=== PATIENT | male | born 1945 | race Two or more races ===

== ENCOUNTER 2017-12-30 10:41 | Outpatient (CLI) | payer MEDICARE, OTHER ==
[~2017-12-30 10:41] MED LIST: ASPIRIN-LOW81 MG ORAL; ATORVASTATIN CA20 MG ORAL; BACLOFEN10 MG ORAL; COLACE100 MG ORAL; COQ-10100 M1 PO; FERROUS SULFAT325 MG ORAL; FLOMAX0.4 MG ORAL; GABAPENTIN100 MG ORAL; GAVISCON LIQUI355 ML PO; LEVOTHYROXINE88 MCG ORAL; LYCOPENE10 MG PO; MELOXICAM7.5 MG PO; METFORMIN HCL850 M1 ORAL; MIRALAX17 G2 ORAL; NEXIUM40 MG ORAL; OMEPRAZOLE20 M2 ORAL; PANTOPRAZOLE SO40 MG ORAL; PHENERGAN6.25 MG/5 ORAL; PROBIOTIC1 EAC5 PO; PROSCAR5 MG ORAL; PROTONIX40 MG ORAL; VITAMIN B-12500 MCG ORAL; VITAMIN D35000 UNIT ORAL; ZANTAC 7575 MG ORAL; ZANTAC150 MG ORAL; ZITHROMAX TRI-500 MG ORAL; [UNRECOGNIZED DRUG - OTHER] PO
[2017-12-30 11:06] VITALS: BP 104/59
[2017-12-30] MEDS ORDERED: METFORMIN HCL500 M1 ORAL (12:20)
[2017-12-30] MEDS ORDERED: VITAMIN B12-FO1 EAC1 PO (12:20)
--- NOTE | 2017-12-30 15:52 | GI Progress Note ---
Assessment/Plan Problems: (1) Abdominal pain ICD Codes: R10.9 - Abdominal pain SNOMED: 95139734 (2) Pancreatic cyst ICD Codes: K86.2 - Pancreatic cyst SNOMED: 76454603 (3) Constipation ICD Codes: K59.00 - Constipation SNOMED: 87701410 Status: stable Status Narrative Seen with Dr. Horn. Assessment/Plan EGD/colonoscopy scheduled 01/06/18. - CLD & (Nulytely/Suprep/Movi-Prep) prep instructions given and acknowledged by patient. - NPO @ DE day prior procedure explained. CTAP to evaluate pancreatic cyst after procedure. The patient was seen and examined at bedside and all new and available data was reviewed in the patients chart. I agree with the above findings, impression and plan. (Patient seen earlier today. Signature stamp does not reflect patient encounter time.). - Zackary Horn MD Subjective Subjective Odynophagia >> Gaviscon helps. last colonoscopy 2010? Objective Last 24 Hour Vital Signs Date Time Temp Pulse Resp B/P (MAP) Pulse Ox O2 Delivery O2 Flow Rate FiO2 12/30/17 11:06 98.1 69 18 104/59 95 98.1 General Appearance: WD/WN, no apparent distress, alert Cardiovascular: normal rate Respiratory/Chest: normal breath sounds, no respiratory distress Abdominal Exam: normal bowel sounds, non tender, soft Extremities: normal range of motion, non-tender Laverne Luevano COMPONENT ASSEMBLER Dec 30, 2017 15:52
== END 2017-12-30 11:13 | disposition home or self-care (01) ==
LOC: PAN 10:41
DX: R10.9 Unspecified abdominal pain (principal); K86.2 Cyst of pancreas; K59.00 Constipation, unspecified
CPT/HCPCS: 99212

== ENCOUNTER 2018-01-06 10:42 | Day surgery (SDC) | payer MEDICARE, OTHER ==
[~2018-01-06] VITALS: Ht 167.6 cm; Wt 70.8 kg
[2018-01-06] VITALS (9 sets, daily range): BP systolic 128–147; BP diastolic 74–78
[~2018-01-06 10:42] MED LIST changes: +METFORMIN HCL500 M1 ORAL; +VITAMIN B12-FO1 EAC1 PO
[2018-01-06] MEDS ORDERED: SYNTHROID100 MCG ORAL (11:18)
[2018-01-06] MEDS ORDERED: Lidocaine 1% MPF 10mg/ml 5ml ONE (11:30)
[2018-01-06] MEDS ORDERED: Propofol 200mg/20ml IV ONE (11:30)
--- NOTE | 2018-01-06 11:49 | Pre-Procedure Note/Attestation ---
Pre-Procedure Note/Attestation Complete Prior to Procedure Planned Procedure: not applicable Procedure Narrative: esophagogastroduodenoscopy and colonoscopy Indications for Procedure Pre-Operative Diagnosis: screening colonoscopy gerd Attestation I attest that I discussed the nature of the procedure; its benefits; risks and complications; and alternatives (and the risks and benefits of such alternatives ), prior to the procedure, with the patient (or the patient's legal insurance account representative). I attest that, if there was a reasonable possibility of needing a blood transfusion, the patient (or the patient's legal insurance account representative) was given the [facility] standardized written summary, pursuant to the [place] Blood Safety Act ([place] Health and Safety Code # 1645, as amended). I attest that I re-evaluated the patient just prior to the surgery and that there has been no change in the patient's H&P, except as documented below: Zackary Horn MD Jan 06, 2018 11:49
--- NOTE | 2018-01-06 11:50 | Short Stay Surgery H&P ---
History of Present Illness History of Present Illness Chief Complaint see recent office consult note HPI Giovanni Yao is a 72 year old male who was admitted on for Abdominal Pain Patient History Allergies: Coded Allergies: No Known Allergies (Unverified , 12/10/12) Medication History Scheduled Aspirin (Aspirin EC), 81 MG ORAL DAILY, (Reported) Atorvastatin Calcium* (Atorvastatin Calcium*), 20 MG ORAL BEDTIME, (Reported) Cyanocobalamin/Folic Acid (Vitamin K15-Fwkyl Acid Tablet), 1 EACH PO DAILY, ( Reported) Ferrous Sulfate* (Ferrous Sulfate*), 325 MG ORAL DAILY, (Reported) Gabapentin* (Gabapentin*), 100 MG ORAL QHS, (Reported) Levothyroxine Sodium* (Synthroid*), 100 MCG ORAL DAILY, (Reported) Metformin Hcl* (Metformin Hcl*), 500 MG ORAL DAILY, (Reported) Pantoprazole* (Pantoprazole*), 40 MG ORAL DAILY, (Reported) Tamsulosin HCl (Flomax), 0.4 MG ORAL DAILY, (Reported) [Prostatan ], PO DAILY, (Reported) Discontinued Medications Cholecalciferol (Vitamin D3) (Vitamin D3), 5,000 UNIT ORAL 3XW, (Reported) Discontinued Reason: MD discontinued med Cyanocobalamin (Vitamin B-12)* (Vitamin B-12*), 500 MCG ORAL DAILY, (Reported) Discontinued Reason: MD discontinued med Docusate Sodium* (Colace*), 100 MG ORAL TWICE A DAY, (Reported) Discontinued Reason: Pt stopped taking med Levothyroxine Sodium* (Levothyroxine Sodium*), 100 MCG ORAL DAILY, (Reported) Discontinued Reason: Pt stopped taking med Lycopene (Lycopene), 20 MG PO DAILY, (Reported) Discontinued Reason: Pt stopped taking med Meloxicam* (Meloxicam*), 7.5 MG PO DAILY, (Reported) Discontinued Reason: MD discontinued med Metformin Hcl* (Metformin Hcl*), 850 MG ORAL DAILY, (Reported) Discontinued Reason: Medication dose changed Polyethylene Glycol 3350* (Miralax*), 17 GM ORAL DAILY, (Reported) Discontinued Reason: Pt stopped taking med Ubidecarenone (Coq-10), 100 MG PO DAILY, (Reported) Discontinued Reason: Pt stopped taking med Plan Attestation Are the patient's medical conditions optimized for surgery? Zackary Horn MD Jan 06, 2018 11:50
--- NOTE | 2018-01-06 12:28 | Endoscopy Procedure Note ---
Endoscopy Procedure Note General Indication for Procedure: screening colon, GERD Procedures Performed: EGD, colonoscopy Operative Findings/Diagnosis: 5 polyps, gastritis Specimen: yes Pt Tolerated Procedure Well: Yes Estimated Blood Loss: none Anesthesia Anesthesiologist: sanju Anesthesia: MAC Inserted Devices Implant(s) used?: No Quality Quality of Bowel Preparation: Good Did scope reach the cecum?: Yes Was there any complications?: No GI Core Measures 50 yrs or older w/o bx or poly: No 10yrs. F/U not recommended: Yes If not recommended, why?: Above average risk 10 yrs. F/U needed: Yes 18 years or older w/prev. colo: Yes <3yrs. since last colonoscopy: No Zackary Horn MD Jan 06, 2018 12:28
--- NOTE | 2018-01-06 12:29 | Anethesia Preoperative Eval ---
Anesthesia Pre-op PMH/ROS General Date of Evaluation: Jan 06, 2018 Time of Evaluation: 11:30 Anesthesiologist: emiliano ASA Score: ASA 3 Mallampati Score Class I : Soft palate, uvula, fauces, pillars visible Class II: Soft palate, uvula, fauces visible Class III: Soft palate, base of uvula visible Class IV: Only hard plate visible Mallampati Classification: Class II Surgeon: rama Diagnosis: abdominal pain Surgical Procedure: egd/colonoscopy Anesthesia History: none Social History: smoking - former smoker Family History: no anesthesia problems Allergies: Coded Allergies: No Known Allergies (Unverified , 12/10/12) Medications: see eMAR Past Medical History Endocrine: Reports: DM, hypothyroidism Anesthesia Pre-op Phys. Exam Physician Exam Last Vital Signs Date Time Temp Pulse Resp B/P (MAP) Pulse Ox O2 Delivery O2 Flow Rate FiO2 01/06/18 11:48 98.7 58 18 136/78 (97) 99 98.7 01/06/18 11:46 Room Air Constitutional: NAD Neurologic: CN 2-12 intact Cardiovascular: RRR Respiratory: CTA Gastrointestinal: S/NT/ND Airway Exam Mallampati Score: Class II MO: limited Neck: supple TMD: 2fb ROM: limited Teeth: intact Anesthesia Pre-op A/P Studies Pre-op Studies: EKG - sinus rl Risk Assessment & Plan Assessment: asa3 Plan: mac Status Change Before Surgery: No Pre-Antibiotics Drug: Estefania Hernadez MD Jan 06, 2018 12:29
[2018-01-06] MEDS ORDERED: fentaNYL 100 mcg/2 mL IV PRN ×2 (12:30→12:45)
[2018-01-06] MEDS ORDERED: Atropine Inj 1mg/10ml Syr IV PRN ×2 (12:30→12:45)
[2018-01-06] MEDS ORDERED: Labetalol 5mg/ml 20ml vial IV PRN ×2 (12:30→12:45)
[2018-01-06] MEDS ORDERED: Midazolam 2mg/2ml Inj IVP PRN ×2 (12:30→12:45)
[2018-01-06] MEDS ORDERED: DiphenhydrAMINE 50mg/ml Inj IVP PRN ×2 (12:30→12:45)
--- NOTE | 2018-01-06 13:27 | Immediate Post-Op Evaluation ---
Immediate Post-Op Evalulation Immediate Post-Op Evalulation Procedure: egd/colonoscopy/bx Date of Evaluation: Jan 06, 2018 Time of Evaluation: 12:39 IV Fluids: 200ml 0.9ns Blood Products: none Estimated Blood Loss: neglgible Blood Pressure Systolic: 141 Blood Pressure Diastolic: 75 Pulse Rate: 51 Respiratory Rate: 18 O2 Sat by Pulse Oximetry: 100 Temperature (Fahrenheit): 97.6 Pain Score (1-10): 0 Nausea: No Vomiting: No Complications none Patient Status: awake, reacts, patent Hydration Status: adequate Drug: Estefania Hernadez MD Jan 06, 2018 13:27
--- NOTE | 2018-01-06 13:29 | 48 Hour Post Anesthesia Eval ---
Post Anesthesia Evaluation Procedure: egd/colonoscopy/bx Date of Evaluation: Jan 06, 2018 Time of Evaluation: 12:41 Blood Pressure Systolic: 139 0: 75 Pulse Rate: 55 Respiratory Rate: 18 Temperature (Fahrenheit): 97.1 O2 Sat by Pulse Oximetry: 100 Airway: patent Nausea: No Vomiting: No Pain Intensity: 0 Hydration Status: adequate Cardiopulmonary Status: stable Mental Status/LOC: patient returned to baseline Post-Anesthesia Complications: none Follow-up care needed: N/A Estefania Humphrey MD Jan 06, 2018 13:29
--- NOTE | 2018-01-06 16:30 | Procedure Note ---
DATE OF PROCEDURE: 01/06/2018 SURGEON: Zackary Horn M.D. PROCEDURE: Upper endoscopy with biopsy and colonoscopy with biopsy. INSTRUMENT: Olympus adult flexible upper endoscope and colonoscope. INDICATION: 1. History of chronic acid reflux disease, GERD. 2. Gastritis. 3. History of colonic polyps. The procedure, risks, benefits, and possible consequences, including hemorrhage, aspiration, perforation and infection, and alternative treatments, were explained to the patient/legal guardian by Dr. Zackary Horn and the patient/legal guardian understood and accepted these risks. DESCRIPTION OF PROCEDURE: After informed consent was obtained and the patient was adequately sedated, Olympus upper endoscope was advanced mouth into the second portion of the duodenum and retroflexion was performed in the stomach. The patient had diffuse gastritis. Random biopsy from antrum and body was obtained to rule out H. pylori infection, otherwise the rest of the upper endoscopic examination looked grossly within normal limits. At this time, the upper endoscope was retrieved and the patient was turned over for colonoscopy. First, rectal exam was performed which was positive for internal hemorrhoids. Then, the scope was advanced from the rectum into the cecum and subsequently into the terminal ileum. Quality of prep was very good. The patient had total of 5 polyps removed, all of them with cold biopsy forceps technique, one in the transverse, two in the rectosigmoid, and two in the rectum. The ones in the rectum and rectosigmoid looked . There were multiple other small ones looked in the rectosigmoid area, hyperplastic which were not biopsied. The patient also had some scattered diverticulosis in the left colon. The patient had evidence of internal hemorrhoids on retroflexion. SUMMARY OF FINDINGS: 1. Gastritis, status post biopsy. 2. Five colonic polyps removed, see above for details. 3. Internal hemorrhoids. 4. Diverticulosis. RECOMMENDATIONS: 1. Follow up biopsy results and treat accordingly. 2. We will recommend repeat colonoscopy in 3 to 5 years. Zackary Horn M.D. DR: Alejandra JOB#: [id number] CC:
--- NOTE | 2018-01-07 18:03 | Cardiology Report ---
APPROVED REPORT EKG Measurement Heart [id number] MI [id number] Sinus bradycardia Increased R/S ratio in V1, consider early transition or posterior infarct Abnormal ECG
== END 2018-01-06 15:05 | disposition home or self-care (01) ==
LOC: GAS 10:42
DX: K29.50 Unspecified chronic gastritis without bleeding (principal); K21.9 Gastro-esophageal reflux disease without esophagitis; D12.3 Benign neoplasm of transverse colon; K63.5 Polyp of colon; K62.1 Rectal polyp; Z86.010 Personal history of colon polyps; E11.9 Type 2 diabetes mellitus without complications; E03.9 Hypothyroidism, unspecified; R00.1 Bradycardia, unspecified; Z87.442 Personal history of urinary calculi; Z87.891 Personal history of nicotine dependence; Z79.82 Long term (current) use of aspirin; Z79.84 Long term (current) use of oral hypoglycemic drugs
CPT/HCPCS: 43239; 45380; 82962; 93005; J2704; 94003; 94150

== ENCOUNTER 2018-01-29 12:58 | Outpatient (CLI) | payer MEDICARE, OTHER ==
[~2018-01-29 12:58] MED LIST changes: +SYNTHROID100 MCG ORAL
[2018-01-29 14:24] VITALS: BP 111/64
--- NOTE | 2018-01-30 14:50 | GI Progress Note ---
Assessment/Plan Problems: (1) Abdominal bloating ICD Codes: R14.0 - Abdominal distension (gaseous) SNOMED: 478501283 (2) Abdominal pain ICD Codes: R10.9 - Abdominal pain SNOMED: 97037858 (3) Pancreatic cyst ICD Codes: K86.2 - Pancreatic cyst SNOMED: 63060346 (4) Constipation ICD Codes: K59.00 - Constipation SNOMED: 65253545 Status: stable Status Narrative Discussed with Dr. Horn. Assessment/Plan plan for EUS in 2-3 months to evaluate pancreatic cyst repeat colonoscopy in 3 years The patient was seen and examined at bedside and all new and available data was reviewed in the patients chart. I agree with the above findings, impression and plan. (Patient seen earlier today. Signature stamp does not reflect patient encounter time.). - Zackary Horn MD Subjective Subjective occasional abdominal bloating Objective T 98.3 BP 111/64 P 64 General Appearance: WD/WN, no apparent distress, alert Cardiovascular: normal rate Respiratory/Chest: normal breath sounds, no respiratory distress Abdominal Exam: normal bowel sounds, non tender, soft Extremities: normal range of motion, non-tender Laverne Luevano CREDIT ANALYST Jan 30, 2018 14:50
== END 2018-01-29 13:28 | disposition home or self-care (01) ==
LOC: PAN 12:58
DX: R10.9 Unspecified abdominal pain (principal); R14.0 Abdominal distension (gaseous); K86.2 Cyst of pancreas; K59.00 Constipation, unspecified
CPT/HCPCS: 99212

== ENCOUNTER 2018-04-16 13:20 | Outpatient (CLI) | payer MEDICARE, OTHER ==
[2018-04-16 13:42] VITALS: BP 117/65
[2018-04-16] MEDS ORDERED: PROSCAR5 MG ORAL (13:43)
--- NOTE | 2018-04-16 15:40 | GI Progress Note ---
Assessment/Plan Problems: (1) Pancreatic cyst ICD Codes: K86.2 - Pancreatic cyst SNOMED: 91455057 (2) Constipation ICD Codes: K59.00 - Constipation SNOMED: 62687576 (3) Abdominal bloating ICD Codes: R14.0 - Abdominal distension (gaseous) SNOMED: 843034674 (4) Abdominal pain ICD Codes: R10.9 - Abdominal pain SNOMED: 50813804 Status: unchanged Status Narrative Seen with Dr. Horn. Assessment/Plan Plan for EUS to evaluate pancreatic cyst. Patient follow up 05/24/18. repeat colonoscopy in 3 years The patient was seen and examined at bedside and all new and available data was reviewed in the patients chart. I agree with the above findings, impression and plan. (Patient seen earlier today. Signature stamp does not reflect patient encounter time.). - Zackary Horn MD Subjective Subjective occasional abdominal pain Objective Last 24 Hour Vital Signs Date Time Temp Pulse Resp B/P (MAP) Pulse Ox O2 Delivery O2 Flow Rate FiO2 04/16/18 13:42 98.2 70 16 117/65 94 General Appearance: WD/WN, no apparent distress, alert Cardiovascular: normal rate Respiratory/Chest: normal breath sounds, no respiratory distress Abdominal Exam: normal bowel sounds, non tender, soft Extremities: normal range of motion, non-tender Lavenre Luevano REGIONAL GEODETIC ADVISOR Apr 16, 2018 15:40
== END 2018-04-16 13:50 | disposition home or self-care (01) ==
LOC: PAN 13:20
DX: K86.2 Cyst of pancreas (principal); K59.00 Constipation, unspecified; R14.0 Abdominal distension (gaseous); R10.9 Unspecified abdominal pain
CPT/HCPCS: 99212

== ENCOUNTER 2018-05-26 10:34 | Outpatient (CLI) | payer MEDICARE, OTHER ==
[2018-05-26 11:00] VITALS: BP 122/61
--- NOTE | 2018-05-27 15:23 | GI Progress Note ---
Assessment/Plan Problems: (1) Abdominal pain ICD Codes: R10.9 - Abdominal pain SNOMED: 47585190 (2) Abdominal bloating ICD Codes: R14.0 - Abdominal distension (gaseous) SNOMED: 830715281 (3) Pancreatic cyst ICD Codes: K86.2 - Pancreatic cyst SNOMED: 30639426 (4) Constipation ICD Codes: K59.00 - Constipation SNOMED: 28694105 Status: stable Status Narrative Seen with Dr. Horn. Assessment/Plan SUMMARY OF FINDINGS reviewed with patient: 1. No pancreatic duct or common bile duct dilatation. 2. Normal gallbladder. 3. A 5 mm simple-looking pancreatic cyst, no change in size since last procedure. RECOMMENDATIONS: Continue current plan of care Pain management Return to clinic in 3 months The patient was seen and examined at bedside and all new and available data was reviewed in the patients chart. I agree with the above findings, impression and plan. (Patient seen earlier today. Signature stamp does not reflect patient encounter time.). - Zackary Horn MD Subjective Subjective Left upper quadrant mild abdominal pain Has history of pancreatic cyst Objective temperature 98.0 Blood pressure 122/61 71Heart rate 95% room air General Appearance: WD/WN, no apparent distress, alert Cardiovascular: normal rate Respiratory/Chest: normal breath sounds, no respiratory distress Abdominal Exam: normal bowel sounds, non tender, soft Extremities: normal range of motion, non-tender Laverne Luevano NP May 27, 2018 15:23
== END 2018-05-26 11:04 | disposition home or self-care (01) ==
LOC: PAN 10:34
DX: R10.12 Left upper quadrant pain (principal); R14.0 Abdominal distension (gaseous); K86.2 Cyst of pancreas; K59.00 Constipation, unspecified
CPT/HCPCS: 99212

== ENCOUNTER 2019-08-11 14:16 | Outpatient (CLI) | payer MEDICARE, OTHER ==
[2019-08-11 14:49] VITALS: BP 127/70
--- NOTE | 2019-08-12 12:38 | General Progress Note ---
Assessment/Plan Assessment/Plan: (1) Abdominal pain ICD Codes: R10.9 - Abdominal pain SNOMED: 28342110 (2) Abdominal bloating ICD Codes: R14.0 - Abdominal distension (gaseous) SNOMED: 310443220 (3) Pancreatic cyst ICD Codes: K86.2 - Pancreatic cyst SNOMED: 18316065 (4) Constipation ICD Codes: K59.00 - Constipation SNOMED: 23457582 Assessment/Plan SUMMARY OF FINDINGS reviewed with patient: 1. No pancreatic duct or common bile duct dilatation. 2. Normal gallbladder. 3. A 5 mm simple-looking pancreatic cyst, no change in size since last procedure. RECOMMENDATIONS: ppi BID miralax labs ordered Return to clinic in 3 months or earlier if pain persist Subjective ROS Limited/Unobtainable: Yes Allergies: Coded Allergies: No Known Allergies (Unverified , 12/10/12) Objective Last 24 Hour Vital Signs Date Time Temp Pulse Resp B/P (MAP) Pulse Ox O2 Delivery O2 Flow Rate FiO2 08/11/19 14:49 97.9 75 18 127/70 (89) 97 General Appearance: alert EENT: normal ENT inspection Neck: supple Cardiovascular: normal rate Respiratory/Chest: decreased breath sounds Abdomen: normal bowel sounds, soft, tender Extremities: non-tender Zackary Horn MD Aug 12, 2019 12:38
== END 2019-08-11 16:16 | disposition home or self-care (01) ==
LOC: PAN 14:16
DX: R10.9 Unspecified abdominal pain (principal); R14.0 Abdominal distension (gaseous); K86.2 Cyst of pancreas; K59.00 Constipation, unspecified
CPT/HCPCS: 99212

== ENCOUNTER 2019-08-23 13:40 | Outpatient (CLI) | payer MEDICARE, OTHER ==
--- NOTE | 2019-08-23 14:10 | General Progress Note ---
Assessment/Plan Assessment/Plan: (1) Abdominal pain ICD Codes: R10.9 - Abdominal pain SNOMED: 83216699 (2) Abdominal bloating ICD Codes: R14.0 - Abdominal distension (gaseous) SNOMED: 103047078 (3) Pancreatic cyst ICD Codes: K86.2 - Pancreatic cyst SNOMED: 73438561 (4) Constipation ICD Codes: K59.00 - Constipation SNOMED: 13383256 Assessment/Plan SUMMARY OF FINDINGS reviewed with patient: 1. No pancreatic duct or common bile duct dilatation. 2. Normal gallbladder. 3. A 5 mm simple-looking pancreatic cyst, no change in size since last procedure. RECOMMENDATIONS: ppi BID carafate miralax labs reviewed Return to clinic in 1 months or earlier if pain persist Subjective ROS Limited/Unobtainable: Yes Allergies: Coded Allergies: No Known Allergies (Unverified , 12/10/12) Objective General Appearance: alert EENT: normal ENT inspection Neck: supple Cardiovascular: normal rate Respiratory/Chest: decreased breath sounds Abdomen: normal bowel sounds, non tender, soft Extremities: non-tender Zackary Horn MD Aug 23, 2019 14:10
== END 2019-08-23 15:17 | disposition home or self-care (01) ==
LOC: PAN 13:40
DX: R10.9 Unspecified abdominal pain (principal); R14.0 Abdominal distension (gaseous); K86.2 Cyst of pancreas; K59.00 Constipation, unspecified
CPT/HCPCS: 99212

== ENCOUNTER 2019-09-13 13:05 | Outpatient (CLI) | payer MEDICARE, OTHER ==
--- NOTE | 2019-09-13 13:54 | General Progress Note ---
Assessment/Plan Assessment/Plan: Assessment/Plan Assessment/Plan: (1) Abdominal pain ICD Codes: R10.9 - Abdominal pain SNOMED: 20812289 (2) Abdominal bloating ICD Codes: R14.0 - Abdominal distension (gaseous) SNOMED: 082291803 (3) Pancreatic cyst ICD Codes: K86.2 - Pancreatic cyst SNOMED: 24773709 (4) Constipation ICD Codes: K59.00 - Constipation SNOMED: 67988573 Assessment/Plan SUMMARY OF FINDINGS reviewed with patient: 1. No pancreatic duct or common bile duct dilatation. 2. Normal gallbladder. 3. A 5 mm simple-looking pancreatic cyst, no change in size since last procedure. ppi BID carafate>> did not help miralax labs reviewed plan CT Subjective ROS Limited/Unobtainable: Yes Allergies: Coded Allergies: No Known Allergies (Unverified , 12/10/12) Objective General Appearance: alert EENT: normal ENT inspection Neck: normal alignment, supple Cardiovascular: normal peripheral pulses Respiratory/Chest: lungs clear Abdomen: normal bowel sounds, non tender, soft Extremities: non-tender Zackary Horn MD Sep 13, 2019 13:54
[2019-09-13] MEDS ORDERED: CARAFATE1 G1 ORAL (15:54)
[2019-09-13 15:55] VITALS: BP 111/67
== END 2019-09-13 15:05 | disposition home or self-care (01) ==
LOC: PAN 13:05
DX: R10.9 Unspecified abdominal pain (principal); R14.0 Abdominal distension (gaseous); K86.2 Cyst of pancreas; K59.00 Constipation, unspecified

== ENCOUNTER → 2019-09-17 | Outpatient (CLI) | payer MEDICARE, OTHER ==
[~2019-09-17] MED LIST changes: +CARAFATE1 G1 ORAL; +GAVISCON ES TA1 EACH PO
--- NOTE | 2019-09-17 13:29 | Diagnostic Imaging Report ---
Clinical Indication: Abdominal pain Technique: No oral contrast utilized, per emergency room physician request IV administration nonionic contrast. Venous phase spiral acquisition obtained through the abdomen and pelvis. Multiplanar reconstructions were generated. Total dose length product 277 mGycm. CTDIvol(s) 5 mGy. Dose reduction achieved using automated exposure control Comparison: none Findings: There is a 17 x 14 x 13 mm lesion within segment 5 of the right hepatic lobe which demonstrates soft tissue attenuation which is lower in attenuation than hepatic parenchyma. No other focal liver lesions are demonstrated. The gallbladder contains a calcified gallstone. There is no biliary ductal dilatation. There is very slight enlargement of the pancreatic uncinate process and slight increased attenuation of the adjacent peripancreatic fat and the fat of the upper mesenteric root. Very questionable subtle area of low-attenuation is seen within the uncinate process of the pancreas on image 42 of series axial 4, image 22 of axial series 8. This measures approximately 7 mm in diameter. The remainder the pancreas is unremarkable except for mild prominence of the downstream pancreatic duct. The spleen, adrenals, kidneys are unremarkable. No renal or ureteral calculi, hydronephrosis, or hydroureter. No pelvic mass or adenopathy. The prostate is mildly enlarged, measuring 4.9 cm transverse by 4.3 cm AP. No pelvic mass or adenopathy. There are colonic diverticula. No evidence of acute diverticulitis. Normal appendix. No free or loculated intraperitoneal gas or fluid. Distal esophagus and stomach are unremarkable. There is equivocal mild wall thickening of the distal duodenum and proximal jejunum at the level of ligament of Treitz. Small bowel otherwise appears unremarkable. The included lung bases demonstrate posterior dependent atelectatic changes. The bones demonstrate degenerative spondylosis changes Impression: Slight swelling of the pancreatic uncinate process and some infiltration of the adjacent fat, could indicate mild pancreatitis changes. Very questionable 7 mm low-attenuation area within the pancreatic uncinate process. Consider short interval follow-up CT scan versus pancreas specific MRI or endoscopic ultrasound for further evaluation 17 mm right lobe liver lesion, not cystic. Main differential considerations are neoplasm, atypical hemangioma, less likely inflammatory process or complex cyst. Ultrasound may be useful to better characterize, versus liver protocol MRI. Cholelithiasis Colonic diverticulosis Equivocal mild distal duodenal and proximal jejunal wall thickening, if real could be related to adjacent pancreatic inflammation Other findings as noted Findings discussed by phone with Dr. Horn at the time of interpretation The CT scanner at [facility] is accredited by the [employer] and the scans are performed using protocols designed to limit radiation exposure to as low as reasonably achievable to attain images of sufficient resolution adequate for diagnostic evaluation.
== END | disposition home or self-care (01) ==
LOC: EDSTATUS 09:00 → CAT 09:04
DX: R10.9 Unspecified abdominal pain (principal); K80.20 Calculus of gallbladder without cholecystitis without obstruction; K57.90 Diverticulosis of intestine, part unspecified, without perforation or abscess without bleeding; K76.9 Liver disease, unspecified
CPT/HCPCS: 74177; Q9967

== ENCOUNTER 2019-09-20 12:08 | Outpatient (CLI) | payer MEDICARE, OTHER ==
[~2019-09-20 12:08] MED LIST changes: -GAVISCON ES TA1 EACH PO
--- NOTE | 2019-09-20 13:07 | General Progress Note ---
Assessment/Plan Assessment/Plan: Assessment/Plan Assessment/Plan: (1) Abdominal pain ICD Codes: R10.9 - Abdominal pain SNOMED: 54564683 (2) Abdominal bloating ICD Codes: R14.0 - Abdominal distension (gaseous) SNOMED: 367320468 (3) Pancreatic cyst ICD Codes: K86.2 - Pancreatic cyst SNOMED: 67746399 (4) Constipation ICD Codes: K59.00 - Constipation SNOMED: 15822069 Assessment/Plan SUMMARY OF FINDINGS reviewed with patient: 1. No pancreatic duct or common bile duct dilatation. 2. Normal gallbladder. 3. A 5 mm simple-looking pancreatic cyst, no change in size since last procedure. ppi BID carafate>> did not help miralax labs reviewed CT>>>>> prominent oanc uninate process gallstones mildly dilated PD stable liver lesion plan MRI Subjective ROS Limited/Unobtainable: Yes Allergies: Coded Allergies: No Known Allergies (Unverified , 12/10/12) Objective General Appearance: alert EENT: normal ENT inspection Neck: supple Cardiovascular: normal rate Respiratory/Chest: decreased breath sounds Abdomen: normal bowel sounds, non tender, soft Extremities: non-tender Zackary Horn MD September 20, 2019 13:07
[2019-09-20] MEDS ORDERED: GAVISCON ES TA1 EACH PO (14:59)
[2019-09-20 15:00] VITALS: BP 125/61
== END 2019-09-20 14:08 | disposition home or self-care (01) ==
LOC: PAN 12:08
DX: R10.9 Unspecified abdominal pain (principal); R14.0 Abdominal distension (gaseous); K86.2 Cyst of pancreas; K59.00 Constipation, unspecified; K76.9 Liver disease, unspecified; K80.80 Other cholelithiasis without obstruction
CPT/HCPCS: 99212

== ENCOUNTER 2019-09-28 08:53 | Outpatient (CLI) | payer MEDICARE, OTHER ==
[~2019-09-28 08:53] MED LIST changes: +GAVISCON ES TA1 EACH PO
--- NOTE | 2019-09-28 09:12 | General Progress Note ---
Assessment/Plan Assessment/Plan: Assessment/Plan Assessment/Plan: (1) Abdominal pain ICD Codes: R10.9 - Abdominal pain SNOMED: 68860375 (2) Abdominal bloating ICD Codes: R14.0 - Abdominal distension (gaseous) SNOMED: 950031021 (3) Pancreatic cyst ICD Codes: K86.2 - Pancreatic cyst SNOMED: 09087030 (4) Constipation ICD Codes: K59.00 - Constipation SNOMED: 01320373 Assessment/Plan SUMMARY OF FINDINGS reviewed with patient: 1. No pancreatic duct or common bile duct dilatation. 2. Normal gallbladder. 3. A 5 mm simple-looking pancreatic cyst, no change in size since last procedure. ppi BID carafate>> did not help miralax labs reviewed CT>>>>> prominent of uninate process gallstones mildly dilated PD stable liver lesion MRI: prominant uncinate process 1.3 cm head lesion plan EUS ca 19-9 on procedure day Subjective ROS Limited/Unobtainable: Yes Allergies: Coded Allergies: No Known Allergies (Unverified , 12/10/12) Subjective feeling better no weight loss Objective General Appearance: alert EENT: normal ENT inspection Neck: supple Cardiovascular: normal rate Respiratory/Chest: decreased breath sounds Abdomen: normal bowel sounds, non tender, soft Extremities: non-tender Zackary Horn MD September 28, 2019 09:12
[2019-10-01] MEDS ORDERED: AVODART0.5 MG ORAL (11:46)
== END 2019-09-28 10:53 | disposition home or self-care (01) ==
LOC: PAN 08:53
DX: R10.9 Unspecified abdominal pain (principal); R14.0 Abdominal distension (gaseous); K86.2 Cyst of pancreas; K59.00 Constipation, unspecified
CPT/HCPCS: 99212

== ENCOUNTER 2019-10-05 09:13 | Outpatient (CLI) | payer MEDICARE, OTHER ==
[~2019-10-05 09:13] MED LIST changes: +AVODART0.5 MG ORAL
== END 2019-10-05 11:13 | disposition home or self-care (01) ==
LOC: PAN 09:13
DX: K86.2 Cyst of pancreas (principal); R10.9 Unspecified abdominal pain; G89.29 Other chronic pain; K21.9 Gastro-esophageal reflux disease without esophagitis
CPT/HCPCS: 99212

== ENCOUNTER 2020-02-28 13:52 | Outpatient (CLI) | payer MEDICARE, OTHER ==
[2020-02-28 14:19] VITALS: BP 128/69
--- NOTE | 2020-02-28 14:29 | General Progress Note ---
Subjective ROS Limited/Unobtainable: Yes Allergies: Coded Allergies: No Known Allergies (Unverified , 12/10/12) Objective Last 24 Hour Vital Signs Date Time Temp Pulse Resp B/P (MAP) Pulse Ox O2 Delivery O2 Flow Rate FiO2 02/28/20 14:19 97.1 75 16 128/69 96 General Appearance: alert EENT: normal ENT inspection Neck: supple Cardiovascular: normal rate Respiratory/Chest: decreased breath sounds Abdomen: normal bowel sounds, non tender, soft Extremities: non-tender Assessment/Plan Assessment/Plan: resolving gastroenteritis pancreatic cyst h/o anemia multiple gallstones dc iron pills RTC if recurrent symptoms plan MRCP/MRI next visit Zackary Horn MD Feb 28, 2020 14:29
== END 2020-02-28 15:52 | disposition home or self-care (01) ==
LOC: PAN 13:52
DX: K52.9 Noninfective gastroenteritis and colitis, unspecified (principal); K86.2 Cyst of pancreas; K80.80 Other cholelithiasis without obstruction
CPT/HCPCS: 99212

== ENCOUNTER 2020-03-28 09:04 | Outpatient (CLI) | payer MEDICARE, OTHER ==
[2020-03-28 09:24] VITALS: BP 126/73
[2020-03-28] MEDS ORDERED: VITAMIN D250 MCG PO (09:27)
--- NOTE | 2020-03-28 09:51 | General Progress Note ---
Subjective ROS Limited/Unobtainable: Yes Allergies: Coded Allergies: No Known Allergies (Unverified , 12/10/12) Objective Last 24 Hour Vital Signs Date Time Temp Pulse Resp B/P (MAP) Pulse Ox O2 Delivery O2 Flow Rate FiO2 03/28/20 09:24 98.1 71 16 126/73 98 General Appearance: alert EENT: normal ENT inspection Neck: supple Cardiovascular: normal rate Respiratory/Chest: decreased breath sounds Abdomen: normal bowel sounds, non tender, soft Extremities: non-tender Assessment/Plan Assessment/Plan: Assessment/Plan: resolving gastroenteritis pancreatic cyst h/o anemia multiple gallstones plan MRCP/MRI Zackary Horn MD Mar 28, 2020 09:50
== END 2020-03-28 11:04 | disposition home or self-care (01) ==
LOC: PAN 09:04
DX: K52.9 Noninfective gastroenteritis and colitis, unspecified (principal); K80.80 Other cholelithiasis without obstruction; K86.2 Cyst of pancreas
CPT/HCPCS: 99212

== ENCOUNTER 2020-04-26 14:35 | Outpatient (CLI) | payer MEDICARE, OTHER ==
[~2020-04-26 14:35] MED LIST changes: +VITAMIN D250 MCG PO
--- NOTE | 2020-04-26 15:31 | General Progress Note ---
Subjective ROS Limited/Unobtainable: Yes Allergies: Coded Allergies: No Known Allergies (Unverified , 12/10/12) Objective General Appearance: alert EENT: normal ENT inspection Neck: supple Cardiovascular: normal rate Respiratory/Chest: decreased breath sounds Abdomen: normal bowel sounds, non tender, soft Extremities: non-tender Assessment/Plan Assessment/Plan: Assessment/Plan Assessment/Plan: Assessment/Plan: resolving gastroenteritis pancreatic cyst h/o anemia multiple gallstones MRCP reviewed repeat either EUS or MRCP in one year Zackary Horn MD Apr 26, 2020 15:31
== END 2020-04-26 16:35 | disposition home or self-care (01) ==
LOC: PAN 14:35
DX: K52.9 Noninfective gastroenteritis and colitis, unspecified (principal); K86.2 Cyst of pancreas; K80.80 Other cholelithiasis without obstruction
CPT/HCPCS: 99212